=== PATIENT | male | born 1990 | race African-American/Black ===

== ENCOUNTER 2016-09-01 07:42 | Emergency (ER) | payer MEDICAID ==
[~2016-09-01] VITALS: Ht 185.4 cm; Wt 127.0 kg
[2016-09-01 08:05] VITALS: BP 163/95
[2016-09-01] MEDS ORDERED: cefTRIAXone SOD 1,000 MG VL IM ONE (10:00)
== END 2016-09-01 10:04 | disposition home or self-care (01) ==
LOC: ER 07:42
DX: H66.93 Otitis media, unspecified, bilateral (principal); F17.210 Nicotine dependence, cigarettes, uncomplicated; F12.10 Cannabis abuse, uncomplicated
CPT/HCPCS: 96372; 99283; J0696

== ENCOUNTER 2017-07-22 08:11 | Emergency (ER) | payer MEDICAID ==
[~2017-07-22] VITALS: Ht 185.4 cm; Wt 129.3 kg
[2017-07-22 08:24] VITALS: BP 146/79
== END 2017-07-22 09:18 | disposition home or self-care (01) ==
LOC: ER 08:11
DX: H10.33 Unspecified acute conjunctivitis, bilateral (principal); F17.210 Nicotine dependence, cigarettes, uncomplicated

== ENCOUNTER 2017-09-16 12:11 | Emergency (ER) | payer MEDICAID ==
[~2017-09-16] VITALS: Ht 185.4 cm; Wt 127.0 kg
[2017-09-16 13:26] LABS: Basophils # (auto) 0 uL; Basophils % (auto) 0.6 % (0.0-2.0); Eosinophils # (auto) 0.1 uL; Eosinophils % (auto) 2.7 % (0.0-7.0); Hematocrit 49.4 % (41.0-53.0); Hemoglobin 16.9 g/dL (13.5-17.5); Lymphocytes # (auto) 2.4 uL; Lymphocytes % (auto) 44.1 % (10.0-50.0); Mean Corpuscular Hemoglobin 29.8 pg (28.0-32.0); Mean Corpuscular Hgb Conc. 34.2 g/dL (32.0-36.0); Mean Corpuscular Volume 87.1 fL (80.0-100.0); Monocytes # (auto) 0.3 uL; Monocytes % (auto) 5.3 % (0.0-12.0); Neutrophils # (auto) 2.6 uL; Neutrophils % (auto) 47.3 % (37.0-80.0); Nucleated Red Blood Cells % 0.4 %; Platelet Count (auto) 269 10^3/uL (140-450); Red Blood Cells 5.67 10^6/uL (4.5-5.90); Red Cell Distribution Width 14.1 % (11.8-14.3); White Blood Cell 5.4 10^3/uL (4.4-10.8)
[2017-09-16 14:31] LABS: Potassium 4.6 mmol/L (3.5-5.1)
[2017-09-16 15:12] LABS: Albumin 4.5 g/dL (3.4-5.0); BUN/Creatinine Ratio 13.6; Bilirubin, Total 0.3 mg/dL (0.2-1.0); Calcium 9.2 mg/dL (8.5-10.1); Total Protein 9.1 g/dL (6.4-8.2)
[2017-09-16 15:45] VITALS: BP 125/78
== END 2017-09-16 15:49 | disposition home or self-care (01) ==
LOC: ER 12:11
DX: K64.9 Unspecified hemorrhoids (principal); F17.210 Nicotine dependence, cigarettes, uncomplicated
CPT/HCPCS: 36415; 74176; 80053; 85025

== ENCOUNTER 2018-05-18 10:56 | Emergency (ER) | payer MEDICAID ==
[~2018-05-18] VITALS: Ht 185.4 cm; Wt 131.5 kg
[2018-05-18 11:11] VITALS: BP 142/90
[2018-05-18 12:08] LABS: Basophils # (auto) 0 uL; Basophils % (auto) 0.6 % (0.0-2.0); Eosinophils # (auto) 0.2 uL; Eosinophils % (auto) 3.8 % (0.0-7.0); Hemoglobin 15.8 g/dL (13.5-17.5); Lymphocytes # (auto) 2.3 uL; Lymphocytes % (auto) 39.3 % (10.0-50.0); Mean Corpuscular Hemoglobin 29.8 pg (28.0-32.0); Mean Corpuscular Hgb Conc. 34.4 g/dL (32.0-36.0); Mean Corpuscular Volume 86.6 fL (80.0-100.0); Monocytes # (auto) 0.4 uL; Monocytes % (auto) 6.4 % (0.0-12.0); Neutrophils # (auto) 2.9 uL; Neutrophils % (auto) 49.9 % (37.0-80.0); Nucleated Red Blood Cells % 0.2 %; Platelet Count (auto) 230 10^3/uL (140-450); Red Blood Cells 5.31 10^6/uL (4.5-5.90); Red Cell Distribution Width 13.6 % (11.8-14.3); White Blood Cell 5.9 10^3/uL (4.4-10.8)
[2018-05-18 12:15] LABS: Urine WBC None Seen /hpf (0 - 3)
[2018-05-18 12:21] LABS: Albumin 3.6 g/dL (3.4-5.0); BUN/Creatinine Ratio 10.7; Bilirubin, Total 0.3 mg/dL (0.2-1.0); Calcium 8.6 mg/dL (8.5-10.1); Potassium 4.5 mmol/L (3.5-5.1)
[2018-05-18 12:54] LABS: Urine Bacteria FEW /hpf (None Seen); Urine Blood Negative /uL (Negative); Urine Specific Gravity 1.011 (1.001-1.035)
== END 2018-05-18 17:12 | disposition left against medical advice (07) ==
LOC: ER 10:56
DX: M53.3 Sacrococcygeal disorders, not elsewhere classified (principal); F17.210 Nicotine dependence, cigarettes, uncomplicated; Z53.29 Procedure and treatment not carried out because of patient's decision for other reasons; Z21 Asymptomatic human immunodeficiency virus [HIV] infection status; Z90.49 Acquired absence of other specified parts of digestive tract
CPT/HCPCS: 36415; 80053; 81001; 85025

== ENCOUNTER 2020-04-02 16:50 | Emergency (ER) | payer SELFPAY ==
[~2020-04-02] VITALS: Ht 185.4 cm; Wt 127.0 kg
[2020-04-02 17:04] VITALS: BP 141/81
[2020-04-02] MEDS ORDERED: cefTRIAXone SOD 500 MG VL IM ONE (18:30)
[2020-04-02] MEDS ORDERED: KETOROLAC TROMETH 60MG/2ML VIAL IM ONE (18:30)
== END 2020-04-02 18:44 | disposition home or self-care (01) ==
LOC: ER 16:50
DX: K04.7 Periapical abscess without sinus (principal); F17.210 Nicotine dependence, cigarettes, uncomplicated
CPT/HCPCS: 96372; 99284; J0696; J1885

== ENCOUNTER 2020-10-13 14:04 | Emergency (ER) | payer SELFPAY ==
[~2020-10-13] VITALS: Ht 185.4 cm; Wt 127.0 kg
[2020-10-13] MEDS ORDERED: ONDANSETRON HCL 4 MG/2 ML VIAL IV ONE (14:15)
[2020-10-13] MEDS ORDERED: MORPHINE SULFATE 4 MG/ML SYR/VIAL IV ONE (14:15)
[2020-10-13 14:32] LABS: Basophils # (auto) 0 10 ^3/uL (0-0.2); Basophils % (auto) 0.4 % (0.0-2.0); Eosinophils # (auto) 0 10 ^3/uL (0-0.8); Eosinophils % (auto) 0.6 % (0.0-7.0); Hematocrit 46.5 % (41.0-53.0); Hemoglobin 16.3 g/dL (13.5-17.5); Lymphocytes # (auto) 1.5 10 ^3/uL (0.4-5.4); Lymphocytes % (auto) 20.9 % (10.0-50.0); Mean Corpuscular Hemoglobin 30.3 pg (28.0-32.0); Mean Corpuscular Hgb Conc. 35.1 g/dL (32.0-36.0); Mean Corpuscular Volume 86.3 fL (80.0-100.0); Monocytes # (auto) 0.6 10 ^3/uL (0-1.3); Monocytes % (auto) 8.6 % (0.0-12.0); Neutrophils # (auto) 5.1 10 ^3/uL (1.6-8.6); Neutrophils % (auto) 69.5 % (37.0-80.0); Nucleated Red Blood Cells % 0.3 %; Platelet Count (auto) 221 10^3/uL (140-450); Red Blood Cells 5.39 10^6/uL (4.5-5.90); Red Cell Distribution Width 13.8 % (11.8-14.3); White Blood Cell 7.4 10^3/uL (4.4-10.8)
[2020-10-13 14:46] LABS: INR 1.02 (0.9-1.15); Partial Thromboplastin Time 26.2 sec (23.0-31.2)
[2020-10-13 14:56] LABS: Calcium 9.3 mg/dL (8.5-10.1); Chloride 107 mmol/L (98-107); Potassium 3.8 mmol/L (3.5-5.1); Sodium 137 mmol/L (136-145)
[2020-10-13 15:04] LABS: Alanine Aminotransferase 44 U/L (16-61); Alkaline Phosphatase 70 U/L (45-117); Anion Gap 6 (5-15); Aspartate Aminotransferase 24 U/L (15-37); BUN/Creatinine Ratio 12.2; Bilirubin, Total 0.6 mg/dL (0.2-1.0); Blood Urea Nitrogen 14 mg/dL (7-18); Carbon Dioxide 24 mmol/L (21-32); GFR African American 96 mL/min; GFR Non-African American 79 mL/min; Glucose 95 mg/dL (74-106); Magnesium 2.4 mg/dL (1.6-2.6); Total Protein 8.4 g/dL (6.4-8.2)
[2020-10-13] MEDS ORDERED: ALUM & MAG HYDROX-SIMETH LIQ(MAALOX) 30 ML PO ONE (15:30)
[2020-10-13] MEDS ORDERED: PANTOPRAZOLE 40 MG/10 ML VIAL INJ IV ONE (15:45)
[2020-10-13 15:59] VITALS: BP 130/72
== END 2020-10-13 16:00 | disposition home or self-care (01) ==
LOC: ER 14:04
DX: R07.89 Other chest pain (principal); F17.210 Nicotine dependence, cigarettes, uncomplicated; Z20.822 Contact with and (suspected) exposure to COVID-19
CPT/HCPCS: 36415; 71045; 80053; 83735; 84484; 85025; 85610; 85730; 87426; 96374; 99285; C9113

== ENCOUNTER 2021-11-13 08:56 | Emergency (ER) | payer OTHER ==
[~2021-11-13] VITALS: Ht 185.4 cm; Wt 127.0 kg
[2021-11-13 09:18] VITALS: BP 139/83
[2021-11-13] MEDS ORDERED: IBUP800T27 PO (10:20)
[2021-11-13] MEDS ORDERED: AMOX-277 PO (10:20)
== END 2021-11-13 10:51 | disposition home or self-care (01) ==
LOC: ER 08:56
DX: K62.89 Other specified diseases of anus and rectum (principal); F12.10 Cannabis abuse, uncomplicated; Z90.89 Acquired absence of other organs

== ENCOUNTER 2023-01-08 10:29 | Emergency (ER) | payer SELFPAY ==
[~2023-01-08] VITALS: Ht 185.4 cm; Wt 141.0 kg
[~2023-01-08 10:29] MED LIST: AMOX-277 PO; IBUP800T27 PO
[2023-01-08 13:36] VITALS: BP 151/94
[2023-01-08] MEDS ORDERED: KETOROLAC TROMETH 60MG/2ML VIAL IM ONE (14:00)
[2023-01-08] MEDS ORDERED: AUG875T PO (14:09)
[2023-01-08] MEDS ORDERED: HYDR-4902 PO (15:12)
== END 2023-01-08 14:14 | disposition home or self-care (01) ==
LOC: ER 10:29
DX: L02.31 Cutaneous abscess of buttock (principal); F12.10 Cannabis abuse, uncomplicated; Z90.89 Acquired absence of other organs
CPT/HCPCS: 96372; 99283; J1885

== ENCOUNTER 2023-01-12 13:57 | Inpatient (IN) | payer SELFPAY ==
[~2023-01-12] VITALS: Ht 185.4 cm; Wt 146.0 kg
[~2023-01-12 13:57] MED LIST changes: +AUG875T PO; +HYDR-4902 PO
[2023-01-12] MEDS ORDERED: ONDANSETRON ODT 4 MG TAB PO ONE (16:15)
[2023-01-12] MEDS ORDERED: MORPHINE SULFATE 4 MG/ML SYR/VIAL IM ONE (16:15)
[2023-01-12] MEDS ORDERED: SODIUM CHLORIDE 0.9% 1,000 ML IV ONE (16:45)
[2023-01-12] MEDS ORDERED: VANCOMYCIN 1GM/250ML 250 ML IV ONE ×2 (16:45→21:00)
[2023-01-12 16:49] LABS: Basophils # (auto) 0 10 ^3/uL (0-0.2); Basophils % (auto) 0.6 % (0.0-2.0); Eosinophils # (auto) 0.1 10 ^3/uL (0-0.8); Eosinophils % (auto) 1.8 % (0.0-7.0); Hematocrit 43.2 % (41.0-53.0); Lymphocytes # (auto) 2.4 10 ^3/uL (0.4-5.4); Lymphocytes % (auto) 29.3 % (10.0-50.0); Mean Corpuscular Hgb Conc. 34.7 g/dL (32.0-36.0); Mean Corpuscular Volume 86.4 fL (80.0-100.0); Monocytes # (auto) 0.7 10 ^3/uL (0-1.3); Neutrophils # (auto) 4.8 10 ^3/uL (1.6-8.6); Neutrophils % (auto) 59.3 % (37.0-80.0); Nucleated Red Blood Cells % 0.2 %; Red Cell Distribution Width 13.2 % (11.8-14.3); White Blood Cell 8.1 10^3/uL (4.4-10.8)
[2023-01-12 17:44] LABS: Albumin 4.1 g/dL (3.4-5.0); Calcium 8.5 mg/dL (8.5-10.1); Potassium 4.2 mmol/L (3.5-5.1)
[2023-01-12 17:47] LABS: BUN/Creatinine Ratio 17.7 (10.0-20.0); Bilirubin, Total 0.6 mg/dL (0.2-1.0); Total Protein 7.7 g/dL (6.4-8.2)
[2023-01-12] MEDS ORDERED: IOHEXOL 300 MG/ML 100ML BOTTLE IJ ONE (18:01)
[2023-01-12] MEDS: PIPERACILLIN-TAZOB 3.375GM 100 ML IV ONE ×2 (19:03→19:07)
[2023-01-12] MEDS ORDERED: HYDROcodone-ACET 10/325MG TAB PO ONE (19:30)
[2023-01-12] MEDS ORDERED: KETOROLAC TROMETH 30 MG/ML 1ML VIAL IV ONE (20:30)
[2023-01-12] MEDS ORDERED: ACETAMINOPHEN 325 MG TAB PO PRN ×2 (20:30→20:45)
[2023-01-12] MEDS ORDERED: VANCOMYCIN PER PHARMACY 0 MG IV SCH (20:45)
[2023-01-12] MEDS ORDERED: MORPHINE SULFATE INJ 2 MG/ml SYRG IV PRN (20:45)
[2023-01-12] MEDS ORDERED: SODIUM CHLORIDE 0.9% 1,000 ML IV SCH (20:45)
[2023-01-12 21:57] LABS: Cholesterol 209 mg/dL (< 200)
[2023-01-12 21:59] LABS: HDL Cholesterol 44 mg/dL (40-59); LDL Cholesterol 141 mg/dL (< 100); Triglycerides 140 mg/dL (< 150)
[2023-01-12 22:58] LABS: INR 0.99 (0.9-1.15)
[2023-01-13] MEDS ORDERED: KETOROLAC TROMETH 30 MG/ML 1ML VIAL IV PRN
[2023-01-13] MEDS: PIPERACILLIN-TAZOB 3.375GM 100 ML IV SCH ×4 (02:46→22:13)
[2023-01-13] MEDS: SODIUM CHLORIDE 0.9% 1,000 ML IV SCH ×4 (02:48→21:30)
[2023-01-13 04:59] LABS: Basophils # (auto) 0 10 ^3/uL (0-0.2); Basophils % (auto) 0.5 % (0.0-2.0); Eosinophils # (auto) 0.2 10 ^3/uL (0-0.8); Eosinophils % (auto) 2.9 % (0.0-7.0); Hematocrit 40.6 % (41.0-53.0); Lymphocytes # (auto) 2.2 10 ^3/uL (0.4-5.4); Lymphocytes % (auto) 28.3 % (10.0-50.0); Mean Corpuscular Hemoglobin 29.8 pg (28.0-32.0); Mean Corpuscular Hgb Conc. 34.5 g/dL (32.0-36.0); Mean Corpuscular Volume 86.4 fL (80.0-100.0); Monocytes # (auto) 0.8 10 ^3/uL (0-1.3); Monocytes % (auto) 11.1 % (0.0-12.0); Neutrophils # (auto) 4.4 10 ^3/uL (1.6-8.6); Neutrophils % (auto) 57.2 % (37.0-80.0); Nucleated Red Blood Cells % 0.2 %; Red Cell Distribution Width 13.5 % (11.8-14.3); White Blood Cell 7.6 10^3/uL (4.4-10.8)
[2023-01-13 05:33] LABS: Potassium 3.7 mmol/L (3.5-5.1)
[2023-01-13 05:44] LABS: Albumin 3.7 g/dL (3.4-5.0); BUN/Creatinine Ratio 17.3 (10.0-20.0); Bilirubin, Total 0.8 mg/dL (0.2-1.0); Calcium 8.6 mg/dL (8.5-10.1); Total Protein 7.4 g/dL (6.4-8.2)
[2023-01-13] MEDS ORDERED: HYDROcodone-ACET 5/325MG TAB PO PRN (12:45)
[2023-01-13 16:34] VITALS: BP 136/75
[2023-01-13] MEDS ORDERED: VANCOMYCIN 1GM/250ML 250 ML IV ONE (17:00)
[2023-01-13 20:00] VITALS: BP 139/62
[2023-01-13] MEDS: MORPHINE SULFATE INJ 2 MG/ml SYRG IV PRN (20:34)
[2023-01-13 21:46] VITALS: BP 134/62
[2023-01-14 04:51] VITALS: BP 120/72
[2023-01-14] MEDS: PIPERACILLIN-TAZOB 3.375GM 100 ML IV SCH ×2 (05:45→14:56)
[2023-01-14 05:50] LABS: Basophils # (auto) 0 10 ^3/uL (0-0.2); Basophils % (auto) 0.8 % (0.0-2.0); Eosinophils # (auto) 0.2 10 ^3/uL (0-0.8); Eosinophils % (auto) 5.6 % (0.0-7.0); Hematocrit 40.4 % (41.0-53.0); Hemoglobin 14.3 g/dL (13.5-17.5); Lymphocytes # (auto) 2.1 10 ^3/uL (0.4-5.4); Lymphocytes % (auto) 48.9 % (10.0-50.0); Mean Corpuscular Hemoglobin 30.4 pg (28.0-32.0); Mean Corpuscular Hgb Conc. 35.5 g/dL (32.0-36.0); Mean Corpuscular Volume 85.6 fL (80.0-100.0); Monocytes # (auto) 0.4 10 ^3/uL (0-1.3); Monocytes % (auto) 9.2 % (0.0-12.0); Neutrophils # (auto) 1.5 10 ^3/uL (1.6-8.6); Neutrophils % (auto) 35.5 % (37.0-80.0); Nucleated Red Blood Cells % 0.3 %; Red Blood Cells 4.71 10^6/uL (4.5-5.90); Red Cell Distribution Width 13.2 % (11.8-14.3); White Blood Cell 4.3 10^3/uL (4.4-10.8)
[2023-01-14 06:10] LABS: Calcium 8.8 mg/dL (8.5-10.1); Potassium 4.5 mmol/L (3.5-5.1)
[2023-01-14 06:13] LABS: BUN/Creatinine Ratio 12.5 (10.0-20.0)
[2023-01-14] MEDS: MORPHINE SULFATE INJ 2 MG/ml SYRG IV PRN ×2 (08:16→14:56)
[2023-01-14 09:00] VITALS: BP 120/70
[2023-01-14] MEDS ORDERED: ceFAZolin 1GM/50ML 100 ML IV ONE (12:17)
[2023-01-14 12:49] VITALS: BP 133/85
[2023-01-14] MEDS ORDERED: MIDAZOLAM HCL 2MG/2ML 2ml VIAL (1mg/ml) ONE (12:52)
[2023-01-14] MEDS ORDERED: fentaNYL CITRATE 100 MCG/2 ML VL ONE (12:52)
[2023-01-14] MEDS ORDERED: MEPERIDINE HCL (25 MG/ML) 1ML VIAL ONE (12:52)
[2023-01-14] MEDS ORDERED: DexAMETHasone SOD PHOS 10MG/1ML VIAL INJ ONE (13:00)
[2023-01-14] MEDS ORDERED: BUPIVACAINE W/ EPINEPH 0.25% INJ 50ML MDV ONE ×2 (13:07→13:32)
[2023-01-14] MEDS ORDERED: LIDOCAINE 1% HCL (LOCAL ANESTH.) INJ 20ML MDV ONE ×2 (13:07→13:32)
[2023-01-14] MEDS ORDERED: PROPOFOL 10 MG/ML 20 ML IV ONE (13:11)
[2023-01-14] MEDS ORDERED: LABETALOL HCL 5 MG/ML 4ML SYRINGE IV PRN (13:45)
[2023-01-14] MEDS ORDERED: ePHEDrine SULFATE 50 MG/ML AMP IV PRN (13:45)
[2023-01-14] MEDS ORDERED: ONDANSETRON HCL 4 MG/2 ML VIAL IV PRN (13:45)
[2023-01-14] MEDS ORDERED: HYDROmorphone HCL 2 MG/ML VL/or syr IV PRN (13:45)
[2023-01-14] MEDS ORDERED: MORPHINE SULFATE 4 MG/ML SYR/VIAL IV PRN (13:45)
[2023-01-14] MEDS ORDERED: MIDAZOLAM HCL 2MG/2ML 2ml VIAL (1mg/ml) IV PRN (13:45)
[2023-01-14 16:35] VITALS: BP 137/86
== END 2023-01-14 19:10 | disposition left against medical advice (07) | DRG 345 ==
LOC: ER 13:57 → OVERFLOW 20:36 → WEST WING 01-13 15:57
PROVIDERS: ADMIT Nurse Practitioner Family; ATTEND Nurse Practitioner Acute Care
PROC: 0D9P0ZZ Drainage of Rectum, Open Approach (ICD-10-PCS; principal; 2023-01-14 12:48)
DX: K61.1 Rectal abscess (principal); L02.31 Cutaneous abscess of buttock; F17.200 Nicotine dependence, unspecified, uncomplicated; E78.5 Hyperlipidemia, unspecified; Z53.29 Procedure and treatment not carried out because of patient's decision for other reasons; E66.01 Morbid (severe) obesity due to excess calories; K76.0 Fatty (change of) liver, not elsewhere classified; Z88.1 Allergy status to other antibiotic agents
CPT/HCPCS: 36415; 74177; 80048; 80053; 80061; 80202; 83036; 83605; 84443; 85025; 85610; 86701; 86703; 87040; 87070; 87075; 87205; 96365; 96367; 96372; G0378; J0690; J1100; J1885; J2001; J2250; J2543; J2704; Q0162

== ENCOUNTER 2023-05-15 15:10 | Emergency (ER) | payer BC, OTHER ==
[~2023-05-15] VITALS: Ht 185.4 cm; Wt 141.0 kg
[~2023-05-15 15:10] MED LIST changes: -AMOX-277 PO; +AMOX875T4 PO; +IBUP-1456 PO; -IBUP800T27 PO
[2023-05-15 15:15] VITALS: PULSE 112; RESP 40; O2SAT 94
[2023-05-15] MEDS ORDERED: ETOMIDATE (2MG/ML) 20ML VIAL IV ONE (15:30)
[2023-05-15] MEDS ORDERED: MORPHINE SULFATE 4 MG/ML SYR/VIAL IV ONE (16:15)
[2023-05-15] MEDS ORDERED: ONDANSETRON HCL 4 MG/2 ML VIAL IV ONE (16:15)
[2023-05-15] MEDS ORDERED: SODIUM CHLORIDE 0.9% 1,000 ML IV ONE (16:15)
[2023-05-15 16:46] LABS: Basophils # (auto) 0 10 ^3/uL (0-0.2); Basophils % (auto) 0.9 % (0.0-2.0); Eosinophils # (auto) 0.1 10 ^3/uL (0-0.8); Eosinophils % (auto) 2.8 % (0.0-7.0); Hematocrit 43.6 % (41.0-53.0); Lymphocytes # (auto) 1.8 10 ^3/uL (0.4-5.4); Lymphocytes % (auto) 38.7 % (10.0-50.0); Mean Corpuscular Hemoglobin 29.2 pg (28.0-32.0); Mean Corpuscular Hgb Conc. 34.4 g/dL (32.0-36.0); Mean Corpuscular Volume 84.8 fL (80.0-100.0); Monocytes # (auto) 0.3 10 ^3/uL (0-1.3); Monocytes % (auto) 6.5 % (0.0-12.0); Neutrophils # (auto) 2.3 10 ^3/uL (1.6-8.6); Neutrophils % (auto) 51.1 % (37.0-80.0); Nucleated Red Blood Cells % 0.2 %; Red Blood Cells 5.14 10^6/uL (4.5-5.90); White Blood Cell 4.6 10^3/uL (4.4-10.8)
[2023-05-15 16:54] LABS: Alanine Aminotransferase 94 U/L (7-40); Albumin 5.1 g/dL (3.2-4.8); Alkaline Phosphatase 63 U/L (46-116); Anion Gap 5 (5-15); Aspartate Aminotransferase 64 U/L (13-40); BUN/Creatinine Ratio 13.4 (10.0-20.0); Blood Urea Nitrogen 16 mg/dL (9-23); Calcium 9.6 mg/dL (8.7-10.4); Carbon Dioxide 27 mmol/L (20-30); Chloride 108 mmol/L (98-107); Glucose 141 mg/dL (74-106); Potassium 3.9 mmol/L (3.5-5.1); Sodium 140 mmol/L (136-145)
[2023-05-15 16:55] LABS: Bilirubin, Total 0.5 mg/dL (0.2-1.0); Total Protein 7.9 g/dL (5.7-8.2)
[2023-05-15] MEDS ORDERED: HYDROmorphone HCL 2 MG/ML VL/or syr IV ONE (17:00)
[2023-05-15 17:12] LABS: INR 1.07 (0.9-1.15); Partial Thromboplastin Time 25.3 SEC (24.5-34.5); Prothrombin Time 11.2 sec (9.3-11.8)
[2023-05-15 17:30] VITALS: BP 150/108; PULSE 87; RESP 20; TEMP 97.8; O2SAT 94
[2023-05-23] MEDS ORDERED: BICT1TAB4 PO (15:59)
[2023-05-23] MEDS ORDERED: CARI250T PO (15:59)
== END 2023-05-15 17:40 | disposition short-term general hospital (02) ==
LOC: EDBD 15:10 → ER 15:10
DX: S82.302A Unspecified fracture of lower end of left tibia, initial encounter for closed fracture (principal); S82.832A Other fracture of upper and lower end of left fibula, initial encounter for closed fracture; F12.10 Cannabis abuse, uncomplicated; Z90.89 Acquired absence of other organs; Z88.1 Allergy status to other antibiotic agents; W19.XXXA Unspecified fall, initial encounter; Y93.89 Activity, other specified; Y92.89 Other specified places as the place of occurrence of the external cause; Y99.8 Other external cause status
CPT/HCPCS: 29515; 36415; 73600; 80053; 85025; 85610; 85730; 96361; 96374; 96375; 99285; J1170; J2270; J2405; J7030

== ENCOUNTER 2023-12-30 14:23 | Inpatient (IN) | payer BC ==
[~2023-12-30] VITALS: Ht 188 cm; Wt 125.6 kg
[~2023-12-30 14:23] MED LIST changes: -AMOX875T4 PO; -AUG875T PO; +BICT1TAB4 PO; +CARI250T PO; -HYDR-4902 PO
[2023-12-30] MEDS: metroNIDAZOLE 500MG/100ML 100 ML IV ONE (19:57)
[2023-12-30] MEDS: IOHEXOL 350 MG/ML 100ML IJ ONE (20:14)
[2023-12-30 20:17] LABS: Basophils # (auto) 0 10 ^3/uL (0-0.2); Basophils % (auto) 0.6 % (0.0-2.0); Eosinophils # (auto) 0.1 10 ^3/uL (0-0.8); Eosinophils % (auto) 0.7 % (0.0-7.0); Hematocrit 42.7 % (41.0-53.0); Hemoglobin 14.7 g/dL (13.5-17.5); Lymphocytes # (auto) 2.2 10 ^3/uL (0.4-5.4); Lymphocytes % (auto) 26.1 % (10.0-50.0); Mean Corpuscular Hemoglobin 29.9 pg (28.0-32.0); Mean Corpuscular Hgb Conc. 34.3 g/dL (32.0-36.0); Mean Corpuscular Volume 87.2 fL (80.0-100.0); Monocytes # (auto) 0.6 10 ^3/uL (0-1.3); Monocytes % (auto) 7.6 % (0.0-12.0); Neutrophils # (auto) 5.5 10 ^3/uL (1.6-8.6); Red Cell Distribution Width 14.1 % (11.8-14.3); White Blood Cell 8.5 10^3/uL (4.4-10.8)
[2023-12-30 20:38] LABS: Alanine Aminotransferase 32 U/L (7-40); Albumin 4.4 g/dL (3.2-4.8); Alkaline Phosphatase 70 U/L (46-116); Anion Gap 7 (5-15); Aspartate Aminotransferase 26 U/L (13-40); BUN/Creatinine Ratio 11.2 (10.0-20.0); Blood Urea Nitrogen 12 mg/dL (9-23); Calcium 9.9 mg/dL (8.5-10.1); Carbon Dioxide 26 mmol/L (20-30); Chloride 105 mmol/L (98-107); Glucose 134 mg/dL (74-106); Potassium 4.3 mmol/L (3.5-5.1); Sodium 138 mmol/L (136-145)
[2023-12-30 20:39] LABS: Bilirubin, Total 0.6 mg/dL (0.2-1.0); Total Protein 7.1 g/dL (5.7-8.2)
[2023-12-30] MEDS: HYDROcodone-ACET 10/325MG TAB PO ONE (20:48)
[2023-12-30] MEDS: ONDANSETRON ODT 4 MG TAB PO ONE (20:49)
[2023-12-30] MEDS ORDERED: ACETAMINOPHEN 325 MG TAB PO PRN (21:00)
[2023-12-30] MEDS ORDERED: DOCUSATE SOD 100 MG CAP PO PRN (21:00)
[2023-12-30] MEDS ORDERED: ONDANSETRON HCL 4 MG/2 ML VIAL IV PRN (21:00)
[2023-12-30] MEDS ORDERED: NITROGLYCERIN 0.4 MG SL TAB SL PRN (21:00)
[2023-12-30] MEDS ORDERED: MORPHINE SULFATE INJ 2 MG/ml SYRG IV PRN (21:00)
[2023-12-30] MEDS: SODIUM CHLORIDE 0.9% 1,000 ML IV ONE (23:23)
[2023-12-31] VITALS (8 sets, daily range): BP systolic 106–135; BP diastolic 62–80; PULSE 70–90; RESP 16–19; TEMP 97.8–98.3; O2SAT 92–97
[2023-12-31] MEDS: CIPROFLOXACIN 400MG/200ML 200 ML IV ONE (00:36)
[2023-12-31] MEDS: MORPHINE SULFATE INJ 2 MG/ml SYRG IV PRN (01:25)
[2023-12-31] MEDS: metroNIDAZOLE 500MG/100ML 100 ML IV SCH (04:43)
[2023-12-31 05:36] LABS: Basophils # (auto) 0 10 ^3/uL (0-0.2); Basophils % (auto) 0.4 % (0.0-2.0); Eosinophils # (auto) 0.1 10 ^3/uL (0-0.8); Eosinophils % (auto) 1.2 % (0.0-7.0); Hematocrit 42.6 % (41.0-53.0); Hemoglobin 14.6 g/dL (13.5-17.5); Lymphocytes # (auto) 2.2 10 ^3/uL (0.4-5.4); Lymphocytes % (auto) 25.1 % (10.0-50.0); Mean Corpuscular Hemoglobin 30.2 pg (28.0-32.0); Mean Corpuscular Hgb Conc. 34.3 g/dL (32.0-36.0); Mean Corpuscular Volume 87.9 fL (80.0-100.0); Monocytes # (auto) 0.7 10 ^3/uL (0-1.3); Neutrophils # (auto) 5.6 10 ^3/uL (1.6-8.6); Neutrophils % (auto) 65.3 % (37.0-80.0); Nucleated Red Blood Cells % 0.1 %; Red Blood Cells 4.85 10^6/uL (4.5-5.90); Red Cell Distribution Width 13.8 % (11.8-14.3); White Blood Cell 8.6 10^3/uL (4.4-10.8)
[2023-12-31 05:45] LABS: Alanine Aminotransferase 24 U/L (7-40); Alkaline Phosphatase 67 U/L (46-116); Anion Gap 7 (5-15); BUN/Creatinine Ratio 9.8 (10.0-20.0); Blood Urea Nitrogen 10 mg/dL (9-23); Calcium 9.4 mg/dL (8.5-10.1); Carbon Dioxide 25 mmol/L (20-30); Chloride 105 mmol/L (98-107); Glucose 162 mg/dL (74-106); Potassium 3.8 mmol/L (3.5-5.1); Sodium 137 mmol/L (136-145)
[2023-12-31 05:47] LABS: Albumin 4.2 g/dL (3.2-4.8); Aspartate Aminotransferase 19 U/L (13-40); Bilirubin, Total 0.7 mg/dL (0.2-1.0); Total Protein 7.1 g/dL (5.7-8.2)
[2023-12-31] MEDS: cefTRIAXone 1GM/50ML D5W 50 ML IV SCH (08:48)
[2023-12-31] MEDS: BIKTARVY PO SCH (10:00)
[2023-12-31] MEDS: PANTOPRAZOLE 40 MG TAB PO SCH (10:36)
[2023-12-31] MEDS: HYDROcodone-ACET 5/325MG TAB PO PRN (10:49)
[2024-01-01 05:00] VITALS: BP 111/61; PULSE 78; RESP 18; TEMP 97.7; O2SAT 96
[2024-01-01 08:00] VITALS: PULSE 66; RESP 18
[2024-01-01 08:16] VITALS: BP 120/70; PULSE 66; RESP 17; TEMP 98.7; O2SAT 98
[2024-01-01] MEDS ORDERED: LEVO500T91 PO (08:20)
[2024-01-01] MEDS ORDERED: TRAM50TA2 PO (08:20)
[2024-01-01] MEDS ORDERED: METR-344 PO (08:20)
[2024-01-01 09:50] VITALS: TEMP 37.1
[2024-01-01 11:27] VITALS: BP 141/89; PULSE 100; RESP 16; TEMP 97.6; O2SAT 96
== END 2024-01-01 10:55 | disposition home or self-care (01) | DRG 395 ==
LOC: ER 14:23 → OVERFLOW 21:05 → CENTRAL 23:52
PROVIDERS: ADMIT Family Medicine; ATTEND Family Medicine
DX: K61.2 Anorectal abscess (principal); E66.9 Obesity, unspecified; E86.0 Dehydration; Z88.1 Allergy status to other antibiotic agents; Z68.35 Body mass index [BMI] 35.0-35.9, adult
CPT/HCPCS: 36415; 74177; 80053; 83605; 85025; G0378; J3490; Q0162

== ENCOUNTER 2025-05-21 13:14 | Emergency (ER) | payer BC ==
[~2025-05-21] VITALS: Ht 185.4 cm; Wt 125.6 kg
[~2025-05-21 13:14] MED LIST changes: +LEVO500T91 PO; +METR-344 PO; +TRAM50TA2 PO
--- NOTE | 2025-05-21 16:47 | ED.PDOC ---
History of Present Illness HPI Comments This patient is a pleasant but morbidly obese 35 year-old male presents to the ED with a chief complaint of cyst to the R periorbital region with associated pain and swelling for x3 days. Patient states he popped the cyst himself today and noticed an increase of swelling. Patient has no further complaints at this time and otherwise denies memory loss, headache, dizziness, N/V/D, or blurred vision. Patients vitals are stable. Chief Complaint: Abscess Time Seen by MD: 16:34 Primary Care Provider: NONE Reviewed Notes: Nurses Notes, Medications, Allergies Allergies: Coded Allergies: Vancomycin (Verified Allergy, Mild, rash, itching, bumps, 01/13/23) Home Meds Active Scripts Tramadol Hcl (Tramadol Hcl) 50 Mg Tab, 50 MG PO QID PRN, #30 TAB Prov:TITA FIELDS MD 01/01/24 Metronidazole (Flagyl) 500 Mg Tab, 500 MG PO TID, #45 TAB Prov:TITA FIELDS MD 01/01/24 Levofloxacin Hemihydrate (LEVAQUIN 500 MG) 500 Mg Tab, 500 MG PO DAILY for 7 Days, #14 TAB Prov:TITA FIELDS MD 01/01/24 Ibuprofen (Ibuprofen) 800 Mg Tab, 1 TAB PO TID PRN, #30 TAB 0 Refills Prov:NATALIE NEWBY 11/13/21 Reported Medications Carisoprodol (Soma) Unknown Strength Tab, PO, TAB 05/23/23 Izmwoddyzxw-Odmrryklhckep-Gwfh (Biktarvy 30-120-15 mg) 1 Tab Tab, 1 TAB PO DAILY, TAB 05/23/23 Information Source: Patient Mode of Arrival: Ambulatory Severity: Moderate Timing: Days Duration: Since onset Prehospital treatment: None Associated signs and symptoms Cyst to the R periorbital region Past Medical History PAST MEDICAL HISTORY: HIV Surgical History: Appendectomy Family History Family History: Unknown Social History Smoker: Non-Smoker Alcohol: Occasionally Drugs: Marijuana Lives In: Home Constitutional: denies: chills, diaphoresis, fatigue, fever, malaise, sweats, weakness, others EENTM: reports: others (Cyst to the R periorbital region ); denies: blurred vision, double vision, ear bleeding, ear discharge, ear drainage, ear pain, ear ringing, eye pain, eye redness, hearing loss, mouth pain, mouth swelling, nasal discharge, nose bleeding, nose congestion, nose pain, photophobia, tearing, throat pain, throat swelling, voice changes Respiratory: denies: cough, hemoptysis, orthopnea, SOB at rest, shortness of breath, SOB with excertion, stridor, wheezing, others Cardiovascular: denies: chest pain, dizzy spells, diaphoresis, Dyspnea on exertion, edema, irregular heart beat, left arm pain, lightheadedness, palpitations, PND, syncope, others Gastrointestinal: denies: abdomen distended, abdominal pain, blood streaked bowels, constipated, diarrhea, dysphagia, difficulty swallowing, hematemesis, melena, nausea, poor appetite, poor fluid intake, rectal bleeding, rectal pain, vomiting, others Genitourinary: denies: burning, dysuria, flank pain, frequency, hematuria, incontinence, penile discharge, penile sore, pain, testicle pain, testicle swelling, urgency, others Neurological: denies: dizziness, fainting, headache, left sided numbness, left sided weakness, numbness, paresthesia, pre-existing deficit, right sided numbness, right sided weakness, seizure, speech problems, tingling, tremors, weakness, others Musculoskeletal: denies: back pain, gout, joint pain, joint swelling, muscle pain, muscle stiffness, neck pain, others Integumetry: reports: wounds (Abscess to right-sided cheek); denies: bruises, change in color, change in hair/nails, dryness, laceration, lesions, lumps, rash, others Allergic/Immunocompromised: denies: Difficulty Healing, Frequent Infections, Hives, Itching, others Hematologic/Lymphatic: denies: anemia, blood clots, easy bleeding, easy bruising, swollen glands, others Endocrine: denies: excessive hunger, excessive sweating, excessive thirst, excessive urination, flushing, intolerance to cold, intolerance to heat, unexplained weight gain, unexplained weight loss, others Psychiatric: denies: anxiety, bipolar disorder, depression, hopeless, panic disorder, schizophrenia, sleepless, suicidal, others All Other Systems: Reviewed and Negative Physical Exam General Appearance: Moderate Distress (Due to facial abscess concerns.), Obese HEENT: Normal ENT Inspection, Pharynx Normal, TMs Normal Neck: Full Range of Motion, Non-Tender, Normal, Normal Inspection Respiratory: Chest Non-Tender, Lungs Clear, No Accessory Muscle Use, No Re spiratory Distress, Normal Breath Sounds Cardiovascular: No Edema, No JVD, No Murmur, No Gallop, Normal Peripheral Pulses, Regular Rate/Rhythm Breast Exam: Deferred Gastrointestinal: No Organomegaly, Non Tender, No Pulsatile Mass, Normal Bowel Sounds, Soft Genitalia: Deferred Pelvic: Deferred Rectal: Deferred Extremities: No calf tenderness, Normal capillary refill, Normal inspection, Normal range of motion, Non-tender, No pedal edema Neurologic: Alert Cerebellar Function: NOT DONE Reflexes: NOT DONE Skin: Wounds (Patient has a quarter-sized abscess noted to the right-sided zygomatic arch with a central drainage point noted. Communicating edema is noted into the lower that region. No drainage noted. Localized erythema.) Lymphatic: No Adenopathy Was a procedure done? Was a procedure done?: No Differential Dx Considerations may include: Facial abscess X-Ray, Labs, Meds, VS Vital Signs Date Time Temp Pulse Resp B/P (MAP) Pulse Ox O2 Delivery O2 Flow Rate FiO2 05/21/25 17:12 98.0 82 17 140/80 (100) 98 98.0 05/21/25 13:21 97.4 83 20 141/92 96 97.4 Current Medications Medications (Trade) Dose Ordered Sig/Sobeida Route Start Time Stop Time Status Last Admin Diphtheria/ Tetanus/Acell Pertussis (Boostrix T-Dap) 0.5 ml ONCE ONCE IM 05/21/25 16:45 05/21/25 16:46 DC 05/21/25 17:16 Dexamethasone Sodium Phosphate (Decadron Injection) 10 mg ONCE ONCE IM 05/21/25 16:45 05/21/25 16:46 DC 05/21/25 17:14 Ketorolac Tromethamine (Toradol Injection) 30 mg ONCE ONCE IM 05/21/25 16:45 05/21/25 16:46 DC 05/21/25 17:17 Acetaminophen/ Hydrocodone Bitart ([place] 5/325MG Tab) 1 tab ONCE ONCE PO 05/21/25 16:45 05/21/25 16:46 DC 05/21/25 17:17 X-Ray, Labs, Meds, VS Comment Spent time discussing the concerns with the patient. Patient was given multiple medications prior to discharge. Advised patient utilize antibiotics as directed until completion as well as pain medication as needed. Warm compresses can be utilized to aid in drainage. If the wound coalesces in the next several days, please return to ED for possible I and D procedure. Images Reviewed?: Images reviewed and evaluated by me Time of 1ST Reevaluation: 18:01 Reevaluation 1ST: Improved Consultation: PCP Patient Education/Counseling: Diagnosis, Treatment Family Education/Counseling: Diagnosis, Treatment, No Family Present Medical Screening: No EMC Exist At This Time SEPSIS Sepsis Screen Date sepsis recognized/suspect: May 21, 2025 Time Sepsis recognized/suspect: 1323 Recent Procedure: No On Antibiotic Therapy: No Respiratory Rate >20: No Heart Rate >90: No Temp<36 C (96.8 F) or >38.3 C: No SBP <90 or MAP <65 mmHG: No New Acute Mental Status Change: No Is the patient on CPAP, BIPAP,: No Vital Signs Date Time Temp Pulse Resp B/P (MAP) Pulse Ox O2 Delivery O2 Flow Rate FiO2 05/21/25 17:12 98.0 82 17 140/80 (100) 98 98.0 05/21/25 13:21 97.4 83 20 141/92 96 97.4 Medications Medications Dose Ordered Sig/Sobeida Route Start Time Stop Time Status Last Admin Dose Admin Acetaminophen/ Hydrocodone Bitart 1 tab ONCE ONCE PO 05/21/25 16:45 05/21/25 16:46 DC 05/21/25 17:17 Dexamethasone Sodium Phosphate 10 mg ONCE ONCE IM 05/21/25 16:45 05/21/25 16:46 DC 05/21/25 17:14 Diphtheria/ Tetanus/Acell Pertussis 0.5 ml ONCE ONCE IM 05/21/25 16:45 05/21/25 16:46 DC 05/21/25 17:16 Ketorolac Tromethamine 30 mg ONCE ONCE IM 05/21/25 16:45 05/21/25 16:46 DC 05/21/25 17:17 Departure 1 Departure Time of Disposition: 18:01 Impression: Primary Impression: Facial abscess Disposition: HOME / SELF CARE / HOMELESS Condition: Stable Additional Instructions: Advised patient utilize antibiotics as directed until completion as his as well as pain medication as needed. If the wound coalesces and groups in the next few days, please return to ED for re-evaluation and possible I and D procedure. e-Prescriptions Acetaminophen (Acetaminophen) 500 Mg Tab 500 MG PO Q4HP PRN, #30 TAB Prov: ZEYAD RICKS PAC 05/21/25 Ibuprofen Micronized (Ibuprofen) 800 Mg Tab 800 MG PO Q8HP PRN, #20 TAB Prov: ZEYAD RICKS PAC 05/21/25 Sulfamethoxazole W/Trimethopri (Bactrim Ds Tablet) 1 Tab Tb 1 TAB PO BID for 10 Days, #20 TAB Prov: ZEYAD RICKS PAC 05/21/25 Discharged With: Self, Friend Critical Care Note Critical Care Time?: No Stability Stability form required: No Heart Score Heart Score: Heart Score Response (Comments) Value History N/A 0 EKG N/A 0 Age N/A 0 Risk Factors N/A 0 Troponin N/A 0 Total 0 I personally scribed for ZEYAD RICKS PAC ([email or web address]) on 05/21/25 at 16:47. Electronically submitted by Karyna Osorio ([facility]). ZEYAD RICKS PAC May 21, 2025 16:47
[2025-05-21 17:12] VITALS: BP 140/80; PULSE 82; RESP 17; TEMP 98
[2025-05-21] MEDS: TETANUS-DIPTH-ACEL PERTUSSIS 0.5ML SYR Tdap IM ONE (17:16)
[2025-05-21] MEDS: HYDROcodone-ACET 5/325MG TAB PO ONE (17:17)
[2025-05-21] MEDS: KETOROLAC TROMETH 60MG/2ML VIAL IM ONE (17:17)
[2025-05-21] MEDS ORDERED: BACDST PO (18:04)
[2025-05-21] MEDS ORDERED: IBUP-1455 PO (18:04)
[2025-05-21] MEDS ORDERED: ACET500T58 PO (18:04)
[2025-05-21 18:14] VITALS: O2SAT 97
== END 2025-05-21 18:13 | disposition home or self-care (01) ==
LOC: ER 13:14
DX: L02.01 Cutaneous abscess of face (principal); F12.90 Cannabis use, unspecified, uncomplicated; F10.90 Alcohol use, unspecified, uncomplicated; Z90.49 Acquired absence of other specified parts of digestive tract; Z88.1 Allergy status to other antibiotic agents; Z79.624 Long term (current) use of inhibitors of nucleotide synthesis; E66.01 Morbid (severe) obesity due to excess calories; Z68.36 Body mass index [BMI] 36.0-36.9, adult; Y90.9 Presence of alcohol in blood, level not specified
CPT/HCPCS: 90471; 90715; 96372; 99284; J1100; J1885